=== PATIENT | male | born 1985 | race Caucasian/White ===

== ENCOUNTER 2024-11-21 19:51 | Emergency (ER) | payer MEDICAID, SELFPAY ==
--- OUTSIDE RECORDS SUMMARY | 2024-11-21 20:01 | XMS_ITS ---
Author Organization [facility] Address [address] [place], [place] [id number] Care Team Providers Care Disease Management Nurse Name Role Phone [facility], Nursing Unavailable [phone] REASON FOR VISIT C3 Er Visit Encounters Encounter Location Date Provider Diagnosis [address] [phone] 07/26/2024 Nursing [facility] Plan Of Treatment No Information Progress Notes * Marcelino CASTILLO FDOB: 4 (39 yo M)Acc No.[id number]:07/26/2024 Patient:?Marcelino Castillo Maykel :1985???Age:39 Y???Sex:Male Phone: Address:[address] [place] [address], [address] * true * Date:? Generated for Angie cox/Leonard/eTransmitting on:?11/21/2024 08:01 PM EST
--- OUTSIDE RECORDS SUMMARY | 2024-11-21 20:01 | XMS_ITS ---
Author Organization [facility] Address [address] [place], [place] [id number] Care Team Providers Care Folding Machine Operator Name Role Phone [facility] Unavailable [phone] REASON FOR VISIT Emapanelment letter sent Encounters Encounter Location Date Provider Diagnosis [facility] [address] [place], [place] [phone] 08/05/2024 W [facility] Plan Of Treatment No Information Progress Notes * Marcelino CASTILLO FDOB: 4 (39 yo M)Acc No.[id number]:08/05/2024 Patient:?Marcelino Castillo :1985???Age:39 Y???Sex:Male Phone: Address:[address] [place] [address], [place], [address] * true * Date:? Generated for Angie cox/Leonard/eTransmitting on:?11/21/2024 08:00 PM EST
--- OUTSIDE RECORDS SUMMARY | 2024-11-21 20:01 | XMS_ITS ---
Author Organization [facility] Address [address] [place], [place] [id number] Care Team Providers Care Heater Planer Operator Name Role Phone [facility], Nursing Unavailable [phone] REASON FOR VISIT Unable to contact Encounters Encounter Location Date Provider Diagnosis [address] [id number] 07/28/2024 Nursing [facility] Plan Of Treatment No Information Progress Notes * Marcelino CASTILLO FDOB: 4 (39 yo M)Acc No.[id number]:07/28/2024 Patient:?Jonathan Marcelino Maykel :1985???Age:39 Y???Sex:Male Phone: Address:[address] [place] [address], [address] * true * Date:? Generated for Angie cox/Leonard/eTransmitting on:?11/21/2024 08:00 PM EST
--- OUTSIDE RECORDS SUMMARY | 2024-11-21 20:01 | XMS_ITS | Patient Health Record ---
Author Organization [facility] Address [address] [place], [place] [phone] Care Team Providers Care Lean Manufacturing Engineer Name Role Phone [facility], Nursing Unavailable [phone] [facility], W Unavailable [phone] Reason For Referral No Information Encounters Encounter Location Date Provider Diagnosis [facility] [address] [place], [place] [phone] 07/26/2024 Nursing [facility] [address] [place], [place] [phone] 07/28/2024 Nursing [facility] [address] [place], [place] [phone] 08/05/2024 [facility] Plan Of Treatment No Information
[2024-11-21 20:46] VITALS: BP 108/73; PULSE 103; RESP 18; TEMP 36.8; O2SAT 99; BMI 22.4
--- NOTE | 2024-11-21 20:57 | ED_ITS ---
HPI - Skin/Abscess/Foreign Bdy General Chief complaint: Skin/Abscess/Foreign Body Stated complaint: multiple abscess; some ruptured Time Seen by Provider: 11/22/24 00:22 Source: patient Mode of arrival: ambulatory Limitations: no limitations History of Present Illness ED Provider: HPI narrative: Patient IVDA user comes here with multiple abscesses for last 4 5 days has a big abscess on posterior part of left leg left forearm and small left was on the right forearm at the site of IVDA no fever no history of MRSA in the past no chills Related Data Previous Rx's ?Medication ?Instructions ?Recorded cephalexin 500 mg capsule 500 mg PO QID 10 days #40 caps 11/22/24 doxycycline hyclate 100 mg tablet 100 mg PO BID #20 tabs 11/22/24 Allergies Allergy/AdvReac Type Severity Reaction Status Date / Time amoxicillin [AMOXICILLIN] Allergy Unknown unk Unverified 11/21/24 20:52 Review of Systems 2 Review of Systems: Yes all other systems are reviewed and are negative [facility] Social History Social History Alcohol intake: current Alcohol intake frequency: 3 or more drinks per day Alcohol type: beer and hard liquor Substance Use Type: Crack/Cocaine and Heroin Physical Exam 2 Vital Signs: Vital Signs: Last Vital Signs Temp 98.9 F 11/22/24 00:34 Pulse 90 11/22/24 00:34 Resp 16 11/22/24 00:34 BP 112/69 11/22/24 00:34 Pulse Ox 96 11/22/24 00:34 O2 Del Method Room Air 11/22/24 00:34 BMI result Body Mass Index 22.4 Appearance: Alert. Oriented X3. No acute distress. Eyes: PERRLA, No Nystagmus ENT: Pharynx normal. Oral Mucosa moist Neck: Normal inspection. Neck supple. CVS: Normal heart rate and rhythm. Pulses normal. Respiratory: No respiratory distress. Equal air entry bilateral, no wheezing/rales/rhonchi Abdomen: Soft and nontender. Bowel sounds are present, no mass palpable, no CVA tenderness Skin: Skin warm and dry. Abscess behind left posterior thigh and left forearm as in the picture Extremities: No lower extremity edema. No calf tenderness Neuro: Oriented X 3. No motor deficit. 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 He states he has been sleeping in our parking lot for 2 days waiting to get help. He has never had MRSA before. He thinks there is chiggers in his skin that come out and when he pops a white head a worm jumps out. He notes he is on methadone. He has no other complaints. He is very antsy and animated in triage. Labs ordered, will need I+D and abx this is a RAPID medical screening exam the rest of the history and physical exam is to be done by the main provider. Medical Decision Making Medical Decision Making MDM Narrative: Patient with IVDA use and multiple abscess I and D was done packing was placed will give patient doxycycline cephalexin Lab Data MDM Lab Attestation statement: I reviewed the patient's lab results. 11/21/24 21:09 11/21/24 21:09 Labs: Lab Results 11/21/24 Range/Units 21:09 WBC 8.8 (4.8-10.8) X10*3/uL RBC 4.18 L (4.60-5.80) X10*6/uL Hgb 12.2 L (14.0-18.0) g/dl Hct 35.2 L (42.0-52.0) % MCV 84.2 (80.0-98.0) fL MCH 29.2 (27.0-33.0) pg MCHC 34.7 (31.0-36.0) g/dl RDW 13.7 (11.0-16.0) % Plt Count 353 (160-400) X10*3/uL MPV 8.9 L (9.4-12.4) fL Immature Gran % (Auto) 1.0 H (0.0-0.4) % Neut % (Auto) 65.2 (45-73) % Lymph % (Auto) 19.6 L (20-40) % [place] % (Auto) 9.9 (2-11) % Eos % (Auto) 3.7 (0-4) % Baso % (Auto) 0.6 (0-2) % Lymph # (Auto) 1.7 (1.2-4.9) X10*3/uL [place] # (Auto) 0.9 (0.1-1.2) X10*3/uL Eos # (Auto) 0.3 (0.0-0.4) X10*3/uL Baso # (Auto) 0.1 (0.0-0.2) X10*3/uL Abs Immat Gran (auto) 0.09 H (0.00-0.03) X10*3/uL Absolute Neuts (auto) 5.7 (2.0-8.3) x10*3/uL Absolute Nucleated RBC 0.000 (0.0-0.012) X10*3/uL Nucleated RBC % (auto) 0.0 (0.0-0.2) /100WBC Sodium 140 (135-145) mmol/L Potassium 4.2 (3.3-5.1) mmol/L Chloride 104 (96-108) mmol/L Carbon Dioxide 25 (22-29) mmol/L Anion Gap 15 (12-20) BUN 8 L (9-16) mg/dL Creatinine 0.74 (0.5-1.4) mg/dL Estim Creat Clear Calc 140.4 Estimated GFR > 60 Random Glucose 89 (60-115) mg/dL Lactic Acid 1.6 (0.5-2.0) mmol/L Calcium 9.1 (8.4-10.2) mg/dL Magnesium 2.0 (1.6-2.6) mg/dL Total Bilirubin 0.2 (0.0-1.0) mg/dL Direct Bilirubin 0.1 (0.0-0.5) mg/dL AST 23 (5-37) U/L ALT 16 (0-40) U/L Alkaline Phosphatase 110 (39-117) U/L Total Creatine Kinase 50 (38-174) U/L Total Protein 7.6 (6.5-8.0) g/dL Albumin 3.9 (3.5-5.0) g/dL Lipase 8 (8-78) U/L Influenza Type A (PCR) NEGATIVE (Negative) Influenza Type B (PCR) NEGATIVE (Negative) RSV RNA Qual (PCR) NEGATIVE (Negative) SARS-CoV-2 RNA (RT-PCR) NEGATIVE (Negative) Procedures Abscess I/D Site: lower extremity Side (if applicable): left Local Anesthetic: lidocaine 1% Amount of anesthesia used (mL): 15 Technique: incised with blade Amount of fluid expressed (mL): 10 Sent for culture/gram staining?: Yes Irrigation: No Packing used?: iodoform Discharge Plan Discharge Clinical Impression: Abscess of skin or subcutaneous tissue Patient Disposition: Home, Self-Care Instructions: Abscess Incision and Drainage (DC) Additional Instructions: Local care as advised Wound recheck and packing removal in 48-72 hours Take antibiotic as prescribed Report to the ED if gets worse or/high fever Prescriptions: New cephalexin 500 mg capsule 500 mg PO QID 10 Days Qty: 40 0RF doxycycline hyclate 100 mg tablet 100 mg PO BID Qty: 20 0RF Print Language: Portuguese
[2024-11-21 21:18] LABS: MANUAL DIFF FLAG NO
[2024-11-21 21:24] LABS: Basophils Absolute Auto 0.1 X10*3/uL (0.0-0.2); Basophils Percent Auto 0.6 % (0-2); Eosinophils Absolute Auto 0.3 X10*3/uL (0.0-0.4); Eosinophils Percent Auto 3.7 % (0-4); Hematocrit 35.2 % (42.0-52.0); Hemoglobin 12.2 g/dl (14.0-18.0); Imm Gran Abs Auto 0.09 X10*3/uL (0.00-0.03); Lymphocytes Absolute Auto 1.7 X10*3/uL (1.2-4.9); Lymphocytes Percent Auto 19.6 % (20-40); Mean Corpuscular HGB Conc 34.7 g/dl (31.0-36.0); Mean Corpuscular Hemoglobin 29.2 pg (27.0-33.0); Mean Corpuscular Volume 84.2 fL (80.0-98.0); Mean Platelet Volume 8.9 fL (9.4-12.4); Monocytes Absolute Auto 0.9 X10*3/uL (0.1-1.2); Monocytes Percent Auto 9.9 % (2-11); Neutrophils Absolute Auto 5.7 x10*3/uL (2.0-8.3); Neutrophils Percent Auto 65.2 % (45-73); Platelet Count 353 X10*3/uL (160-400); Red Blood Count 4.18 X10*6/uL (4.60-5.80); Red Cell Distribution Width 13.7 % (11.0-16.0); White Blood Count 8.8 X10*3/uL (4.8-10.8)
[2024-11-21 21:45] LABS: Lactic Acid 1.6 mmol/L (0.5-2.0)
[2024-11-21 21:48] LABS: Alanine Aminotransferase 16 U/L (0-40); Albumin Level 3.9 g/dL (3.5-5.0); Anion Gap 15 (12-20); Aspartate Amino Transferase 23 U/L (5-37); Bilirubin Direct 0.1 mg/dL (0.0-0.5); Blood Urea Nitrogen 8 mg/dL (9-16); Calcium 9.1 mg/dL (8.4-10.2); Carbon Dioxide 25 mmol/L (22-29); Chloride 104 mmol/L (96-108); Creatinine Clr Calc Pharmacy 140.4; Estimated Glomerular Filt Rate > 60; Glucose Random 89 mg/dL (60-115); Lipase 8 U/L (8-78); Potassium 4.2 mmol/L (3.3-5.1); Sodium 140 mmol/L (135-145); Total Protein 7.6 g/dL (6.5-8.0)
[2024-11-21 21:55] LABS: Alkaline Phosphatase 110 U/L (39-117)
[2024-11-21 21:57] LABS: Bilirubin Total 0.2 mg/dL (0.0-1.0)
[2024-11-21 22:00] LABS: Influenza A PCR NEGATIVE (Negative); Influenza B PCR NEGATIVE (Negative); Resp Syncy Virus RNA Qual PCR NEGATIVE (Negative); SARS COV2 PCR INHOUSE NEGATIVE (Negative)
[2024-11-22 00:34] VITALS: BP 112/69; PULSE 90; RESP 16; TEMP 37.2; O2SAT 96
--- NOTE | 2024-11-22 00:40 | PC.NURSE ---
Per Dr Navarrete, second set of blood cultures is not needed.
[2024-11-22] MEDS: Acetaminophen 325 MG TABLET 975 MG PO (01:14)
[2024-11-22] MEDS: Doxycycline Monohydrate 100 MG CAPSULE PO (01:15)
[2024-11-22] MEDS: cephALEXin 500 MG CAPSULE 1000 MG PO (01:15)
[2024-11-22] MEDS: Lidocaine HCl 1 % MPF 5 ML VIAL 30 ML INFILTRATI (01:15)
[2024-11-22 01:23] VITALS: BP 117/81; PULSE 96; RESP 18; TEMP 37.1; O2SAT 95
== END 2024-11-22 01:44 | disposition home or self-care (01) ==
PROVIDERS: Emergency Medicine; Emergency Provider Internal Medicine
DX: L02.416 Cutaneous abscess of left lower limb (principal); L02.512 Cutaneous abscess of left hand; L02.414 Cutaneous abscess of left upper limb; L02.413 Cutaneous abscess of right upper limb; F11.20 Opioid dependence, uncomplicated; Z86.14 Personal history of Methicillin resistant Staphylococcus aureus infection; Z03.818 Encounter for observation for suspected exposure to other biological agents ruled out
CPT/HCPCS: 0241U; 10060; 80048; 80076; 82550; 83605; 83690; 83735; 85025; 87040; 87070; 87077; 87186; 87205; 99284; J2003

== ENCOUNTER 2024-11-25 01:26 | Emergency (ER) | payer MEDICAID, SELFPAY ==
[2024-11-25 01:34] VITALS: BP 128/79; PULSE 96; RESP 16; TEMP 36.6; O2SAT 99; BMI 23.4
[2024-11-25 02:19] LABS: MANUAL DIFF FLAG NO
[2024-11-25 02:21] LABS: Basophils Absolute Auto 0.1 X10*3/uL (0.0-0.2); Basophils Percent Auto 0.9 % (0-2); Eosinophils Absolute Auto 0.2 X10*3/uL (0.0-0.4); Eosinophils Percent Auto 2.1 % (0-4); Hematocrit 37.9 % (42.0-52.0); Hemoglobin 12.8 g/dl (14.0-18.0); Imm Gran Abs Auto 0.17 X10*3/uL (0.00-0.03); Imm Gran Pct Auto 2.1 % (0.0-0.4); Lymphocytes Absolute Auto 1.9 X10*3/uL (1.2-4.9); Lymphocytes Percent Auto 22.8 % (20-40); Mean Corpuscular HGB Conc 33.8 g/dl (31.0-36.0); Mean Corpuscular Hemoglobin 29.1 pg (27.0-33.0); Mean Corpuscular Volume 86.1 fL (80.0-98.0); Mean Platelet Volume 8.6 fL (9.4-12.4); Monocytes Absolute Auto 0.6 X10*3/uL (0.1-1.2); Monocytes Percent Auto 6.7 % (2-11); Neutrophils Absolute Auto 5.3 x10*3/uL (2.0-8.3); Neutrophils Percent Auto 65.4 % (45-73); Platelet Count 396 X10*3/uL (160-400); Red Cell Distribution Width 13.7 % (11.0-16.0); White Blood Count 8.2 X10*3/uL (4.8-10.8)
[2024-11-25 02:31] LABS: Lactic Acid 1.5 mmol/L (0.5-2.0)
[2024-11-25 02:40] LABS: Alanine Aminotransferase 23 U/L (0-40); Albumin Level 3.9 g/dL (3.5-5.0); Anion Gap 16 (12-20); Aspartate Amino Transferase 28 U/L (5-37); Bilirubin Total 0.1 mg/dL (0.0-1.0); Blood Urea Nitrogen 11 mg/dL (9-16); Calcium 9.1 mg/dL (8.4-10.2); Carbon Dioxide 22 mmol/L (22-29); Chloride 108 mmol/L (96-108); Creatinine Clr Calc Pharmacy 134.7; Estimated Glomerular Filt Rate > 60; Glucose Random 75 mg/dL (60-115); Potassium 3.8 mmol/L (3.3-5.1); Sodium 142 mmol/L (135-145); Total Protein 7.7 g/dL (6.5-8.0)
[2024-11-25 02:47] LABS: Alkaline Phosphatase 102 U/L (39-117)
--- NOTE | 2024-11-25 03:23 | PC.NURSE ---
pt brought back to be seen, refusing to stay and education the importance of staying, pt refusing to stay.
== END 2024-11-25 03:34 | disposition left against medical advice (07) ==
PROVIDERS: Emergency Provider Emergency Medicine
DX: L02.414 Cutaneous abscess of left upper limb (principal); L02.413 Cutaneous abscess of right upper limb; L02.416 Cutaneous abscess of left lower limb; F19.90 Other psychoactive substance use, unspecified, uncomplicated; Z53.21 Procedure and treatment not carried out due to patient leaving prior to being seen by health care provider
CPT/HCPCS: 36415; 80053; 83605; 85025; 87040; 99281

== ENCOUNTER 2024-11-27 22:33 | Emergency (ER) | payer MEDICAID, SELFPAY ==
[2024-11-27 22:41] VITALS: BP 131/76; PULSE 94; RESP 18; TEMP 36.1; O2SAT 95; BMI 19.6
--- NOTE | 2024-11-27 22:57 | ED_ITS ---
HPI - Skin/Abscess/Foreign Bdy General Chief complaint: Skin/Abscess/Foreign Body Stated complaint: Abscess Time Seen by Provider: 11/27/24 22:56 Source: patient Mode of arrival: ambulatory Limitations: no limitations History of Present Illness ED Provider: HPI narrative: Patient with history of IVDA use abscess to the back of the left high status post I and D done on 11/25 patient comes here for wound recheck patient is fairly compliant taking his antibiotics and local care Related Data Previous Rx's ?Medication ?Instructions ?Recorded cephalexin 500 mg capsule 500 mg PO QID 10 days #40 caps 11/22/24 doxycycline hyclate 100 mg tablet 100 mg PO BID #20 tabs 11/22/24 doxycycline hyclate 100 mg tablet 100 mg PO BID #20 tabs 11/28/24 mupirocin 2 % topical ointment 1 appl topical BID #22 grams 11/28/24 Allergies Allergy/AdvReac Type Severity Reaction Status Date / Time amoxicillin [AMOXICILLIN] Allergy Unknown unk Verified 11/27/24 22:44 Review of Systems Review of Systems: Yes all other systems are reviewed and are negative [facility] Social History Social History Alcohol intake: current Alcohol intake frequency: 3 or more drinks per day Alcohol type: beer and hard liquor Substance Use Type: Crack/Cocaine and Heroin Do you have a plan to hurt others: No Plan Physical Exam Vital Signs: Vital Signs: Last Vital Signs Temp 97 F 11/27/24 22:41 Pulse 94 11/27/24 22:41 Resp 18 11/27/24 22:41 BP 131/76 11/27/24 22:41 Pulse Ox 95 11/27/24 22:41 O2 Del Method Room Air 11/27/24 22:41 BMI result Body Mass Index 19.6 Appearance: Alert. Oriented X3. No acute distress. ENT: Pharynx normal. Oral Mucosa moist Neck: Normal inspection. Neck supple. CVS: Normal heart rate and rhythm. Pulses normal. Respiratory: No respiratory distress. Equal air entry bilateral, no wheezing/rales/rhonchi Skin: Skin warm and dry. Normal skin color. Normal skin turgor. Extremities: No lower extremity edema. Healing wound in the left posterior thigh and left forearm at the size of I and D packing came off no signs of deeper infection Neuro: Oriented X 3. Medical Decision Making Medical Decision Making MDM Narrative: Local wound care was given and dressing was applied patient advised to continue antibiotics for another 10 days Discharge Plan Discharge Clinical Impression: Abscess of skin or subcutaneous tissue Patient Disposition: Home, Self-Care Instructions: Abscess Follow-up (ED) Additional Instructions: Local care as advised Continue antibiotic and apply antibiotic ointment Take doxycycline for another 10 days Prescriptions: New mupirocin 2 % ointment 1 appl topical BID Qty: 22 0RF doxycycline hyclate 100 mg tablet 100 mg PO BID Qty: 20 0RF No Action cephalexin 500 mg capsule 500 mg PO QID 10 Days Qty: 40 0RF doxycycline hyclate 100 mg tablet 100 mg PO BID Qty: 20 0RF Print Language: Mohawk
[2024-11-28 01:03] VITALS: BP 131/70; PULSE 95; RESP 16; TEMP 36.4; O2SAT 96
[2024-11-28 01:04] VITALS: BP 131/70; PULSE 95; RESP 16; TEMP 36.4; O2SAT 96
--- NOTE | 2024-11-28 01:05 | PC.NURSE ---
Reviewed discharge instruction with pt. pt verbalized understanding, no sign of distress upon discharge. Pt had a steady gait upon discharge.
== END 2024-11-28 01:04 | disposition home or self-care (01) ==
PROVIDERS: Emergency Provider Internal Medicine
DX: L02.414 Cutaneous abscess of left upper limb (principal); Z48.00 Encounter for change or removal of nonsurgical wound dressing
CPT/HCPCS: 99283; 99284

== ENCOUNTER 2025-07-12 02:45 | Emergency (ER) | payer MEDICAID, SELFPAY ==
[2025-07-12 02:48] VITALS: PULSE 72; RESP 20; TEMP 36.3; BMI 21.1
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
--- OUTSIDE RECORDS SUMMARY | 2025-07-12 03:18 | XMS_ITS | Clinical Summary ---
Author Organization [facility] Address [address] [place] [address] Care Team Providers Care Premium Representative Name Role Phone Unavailable Primary Care Provider Unavailabl e Surgical History Surgery Date Site/Laterality Comments APPENDECTOMY age 9 PROCEDURE: HISTORICAL APPENDECTOMY Family History Relation Name Status Comments Brother Alive older, healthy Father Alive Pulmonary embol ism age 65, prostate CA Mother Alive healthy Sister Alive x4, all healthy Social History Tobacco Use Types Packs/Day Years Used Date Smoking Tobacco: Former Cigarettes Alcohol Use Standard Drinks/Week Comments Yes 10 (1 standard drink = 0.6 oz pu re alcohol) Sex and Gender Information Value Date Recorded Sex Assigned at Not on file Legal Sex Male 5:18 PM EST Gender Identity Not on file Sexual Orientation Not on file Obstetrics History Plan of Treatment Health Maintenance Due Date Last Done Comments DTaP,Tdap,and Td Vaccines (1 - Tdap) 2003 Hepatitis B Vaccines (1 of 3 - 19+ 3-dose series) 2003 Cholesterol Screening (Lipid Panel) 10/11/2022 HIV Screening 10/11/2022 Hepatitis C Screening 10/11/2022 Social Influencers of Health Screening 10/11/2022 COVID-19 Vaccine (1 - 2023-2 5 season) 2024 Depression Screening 11/09/2024 Influenza Vaccine (#1) 2025 HIB Vaccines Aged Out No longer eligi ble based on patient's age to complete this topic HPV Vaccines Aged Out No longer eligi ble based on patient's age to complete this topic Hepatitis A Vaccines Aged Out No long er eligible based on patient's age to complete this topic IPV Vaccines Aged Out No longer eligi ble based on patient's age to complete this topic MMR Vaccines Aged Out No longer eligi ble based on patient's age to complete this topic Meningococcal ACWY Vaccine Aged Out N o longer eligible based on patient's age to complete this topic Meningococcal B Vaccine Aged Out No l onger eligible based on patient's age to complete this topic Pneumococcal Vaccine: Pediat rics (0 to 5 Years) and At-Risk Patients (6 to 49 Years) Aged Out No longer eligible b ased on patient's age to complete this topic RSV Immunization Patients Un lacie 20 months Aged Out No longer eligible b ased on patient's age to complete this topic Varicella Vaccines Aged Out No longer eligible based on patient's age to complete this topic
--- OUTSIDE RECORDS SUMMARY | 2025-07-12 03:18 | XMS_ITS | Clinical Summary ---
Author Organization [employer] Address [address] [place] [address] Care Team Providers Care Bisque Cleaner Name Role Phone Unavailable Primary Care Provider Unavailabl e Social History Tobacco Use Types Packs/Day Years Used Date Smoking Tobacco: Never Assessed Sex and Gender Information Value Date Recorded Sex Assigned at Male 07/14/2024 12:34 PM EDT Legal Sex Male 12:22 PM EDT Gender Identity Male 07/14/2024 12:34 PM EDT Sexual Orientation Not on file Plan of Treatment Health Maintenance Due Date Last Done Comments Depression Screening 1984 HIV Screening 1984 Lipid Panel 1984 SDOH Screening 1984 Disability Screening 1984 Alcohol/Substance Use Screening 1996 Tobacco Screening 1996 Family Planning (PISQ) 1999 HPV Vaccines (1 - Male 3-dos e series) 1999 Hepatitis C Screening 2002 DTaP/Tdap/Td Vaccines (1 - Tdap) 2003 Hepatitis B Vaccines (1 of 3 - 19+ 3-dose series) 2003 COVID-19 Vaccine (1 - 2023-2 5 season) 2025 Influenza Vaccine (#1) 2025 Zoster Vaccines (1 of 2) 2034 RSV Patients and Pa tients Aged 60 years or older (1 - 1-dose 75+ series) 2059 HIB Vaccines Aged Out No longer eligi [...] patient's age to complete this topic Meningococcal Vaccine Aged Out No laith susan eligible based on patient's age to complete this topic Pneumococcal Vaccine: Pediat rics (0 to 5 Years) and At-Risk Patients (6 to 49) Years Aged Out No longer eligible b ased on patient's age to complete this topic RSV under 20 months Aged Out No longe r eligible based on patient's age to complete this topic Rotavirus Vaccines Aged Out No longer eligible based on patient's age to complete this topic Insurance [facility] C3
== END 2025-07-12 03:23 | disposition left against medical advice (07) ==
PROVIDERS: Emergency Provider Emergency Medicine
DX: H57.13 Ocular pain, bilateral (principal); F19.10 Other psychoactive substance abuse, uncomplicated; Z53.29 Procedure and treatment not carried out because of patient's decision for other reasons
CPT/HCPCS: 99281